=== PATIENT | male | born 1965 | race Caucasian/White ===

== ENCOUNTER 2018-11-19 12:21 | Emergency (ER) | payer MEDICAID ==
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
== END 2018-11-19 15:20 ==
LOC: JP.ED 12:21
DX: F15.20 Other stimulant dependence, uncomplicated (principal)
CPT/HCPCS: 36415; 80053; 80305; 81001; 85025; 99284; G0480